=== PATIENT | male | born 1940 | race Caucasian/White ===

== ENCOUNTER 2023-02-09 09:52 | Outpatient (CLI) | payer MEDICARE, OTHER, SELFPAY ==
[2023-02-09 10:05] VITALS: BMI 27.1
--- NOTE | 2023-02-09 10:12 | PC.NURSE ---
1012-collected labs via venipuncture stick with butterfly needle in right upper arm;pt d/c home.
[2023-02-09 10:29] LABS: Basophils # 0.5 K/mm3 (0-0.2); Basophils % 0.8 % (0.1-2.0); Eosinophils # 0.2 K/mm3 (0.0-0.4); Eosinophils % 0.2 % (0.1-12.0); Hematocrit 32.9 % (42.0-52.0); Hemoglobin 11.2 g/dL (14.1-18.0); Lymphocytes # 57.9 K/mm3 (0.7-4.5); Lymphocytes % 93.1 % (10-50); Mean Corpuscular HGB Conc 34.1 g/dL (31.8-35.4); Mean Corpuscular Volume 93.9 fl (80-94); Mean Platelet Volume 8.9 fl (7.4-10.4); Monocytes % 1.6 % (1.7-9.3); Neutrophils # 2.7 K/mm3 (1.8-7.8); Platelet Count 61 K/mm3 (142-424); Red Blood Count 3.51 M/mm3 (4.60-6.20); Red Cell Distribution Width 15.1 % (11.5-17.5)
[2023-02-09 10:30] LABS: Neutrophils % 4.3 % (37.0-80.0); White Blood Count 62.1 K/mm3 (4.8-10.8)
[2023-02-09 10:31] LABS: Chloride 106 mmol/L (98-107); Potassium 4.1 mmoL/L (3.5-5.1); Sodium 139 mmol/L (136-145)
[2023-02-09 10:32] LABS: MANUAL DIFFERENTIAL MANUAL DIFFERENTIAL (MANUAL DIFF)
[2023-02-09 10:34] LABS: Alanine Aminotransferase 22 U/L (12-78); Albumin Level 4.4 g/dl (3.5-5.0); Alkaline Phosphatase 68 U/L (38-126); Anion Gap 9.1 mEq/L (5-15); Aspartate Amino Transferase 56 U/L (17-59); Bilirubin,Total 0.8 mg/dl (0.2-1.3); Blood Urea Nitrogen 24 mg/dl (9-20); Calcium 8.5 mg/dl (8.4-10.2); Carbon Dioxide 28 mmol/L (22.0-30.0); Creatinine Clearance Estimated 59 mL/min (50-200); Estimated Glomerular Filt Rate 92 ml/min (>60); GFR (African American) 111 ML/MIN (>60); Globulin 2.2 g/dL (1.3-3.2); Glucose 93 mg/dl (74-100); Total Protein,Serum 6.6 g/dl (6.3-8.2)
[2023-02-09 10:39] LABS: Lymphocytes % 95 % (10-50); Monocytes % 3 % (2-9); Neutrophils % 2 % (42-76); Platelet Estimate Moderate Decrease; RBC Morphology Normal; Total Cells Counted 100
[2023-02-09 10:59] LABS: Lactate Dehydrogenase 142 U/L (313-618)
== END 2023-02-09 10:15 | disposition home or self-care (01) ==
LOC: LAB 09:55 → INF 10:22
PROVIDERS: Visit Provider Internal Medicine Medical Oncology
DX: C91.10 Chronic lymphocytic leukemia of B-cell type not having achieved remission (principal)
CPT/HCPCS: 36415; 80053; 83615; 85007; 85025